=== PATIENT | male | born 1945 | race Caucasian/White ===

== ENCOUNTER 2017-03-20 09:42 | Outpatient (CLI) | payer OTHER ==
--- NOTE | 2017-03-20 12:07 | DIAGNOSTIC IMAGING REPORT ---
PROCEDURE: US ABDOMEN VASCULAR-AAA INDICATION: Hypertension, history of smoking TECHNIQUE: Christy scale, color Doppler (and spectral Doppler if indicated) sonographic images were obtained of the abdominal aorta and proximal common iliac arteries. COMPARISON: None. FINDINGS: Aortic course and contour: Fairly extensive intraluminal irregularities secondary to mixed calcified and noncalcified atherosclerotic plaque. Greatest AP diameter of the proximal aorta: 2.6 cm, mid aorta: 2.2 cm, distal aorta: 1.8 cm. Aortic flow: 83 cm/sec Right common iliac artery diameter, contour, and flow: The origin appear stenotic and irregular secondary to heavy atherosclerosis. The caliber is 12 mm. Flow is turbulent at the origin and demonstrates elevated velocity of 322 cm/sec. Left common iliac artery and diameter, contour, and flow: Left common iliac origin not well seen. Caliber is normal 1.3 cm. Turbulent, elevated velocity at 264 cm/sec. IMPRESSION: 1. No evidence of abdominal aortic aneurysm. 2. Fairly extensive abdominal aortic atherosclerosis. 3. Potentially hemodynamically significant stenoses at the right and left common iliac artery origins, right worse than left resulting in significant velocity elevations in the proximal common iliac arteries distal to the origins. 3. Consider clinical correlation with any lower extremity claudication, and bilateral lower extremity Doppler evaluation with ABIs if indicated.
== END 2017-03-20 23:00 ==
LOC: US SRH 09:42
DX: Z87.891 Personal history of nicotine dependence (principal); I10 Essential (primary) hypertension; Z13.6 Encounter for screening for cardiovascular disorders; I70.0 Atherosclerosis of aorta

== ENCOUNTER 2017-05-06 13:22 | Outpatient (CLI) | payer OTHER ==
--- NOTE | 2017-05-06 16:33 | DIAGNOSTIC IMAGING REPORT ---
PROCEDURE: US BILATERAL CAROTID DOPPLER INDICATION: Syncope, history of bilateral carotid endarterectomy and the left ICA stent. History of smoking. TECHNIQUE: Color Doppler duplex imaging of the carotid and vertebral vessels. COMPARISON: 04/12/2014 FINDINGS: Right carotid system: Noncalcified atherosclerotic plaque in the proximal common carotid artery causing mild luminal stenosis. Irregular calcific plaque in the distal common carotid artery extending to the carotid bulb where there is only mild intimal medial thickening. Minor concentric wall thickening of external and internal carotid artery origins. The wave forms are normal. Left carotid system: Moderate common carotid intimal medial thickening proximally, and distally and there is moderate calcific plaque causing mild luminal stenosis. A short foci of eccentric plaque are seen in the distal common segment. Moderate intimal medial thickening of the carotid bulb extends into the internal carotid artery, and there is subjective mild luminal narrowing at the external carotid artery origin. Midportion of the left internal carotid artery demonstrates subjective luminal narrowing but there is laminar flow. Vertebral System: There is retrograde flow in the right vertebral artery and increased velocity antegrade flow in the left. Right common carotid artery peak systolic velocity 120 cm/second. Right internal carotid artery peak systolic velocity 70 cm/second. Right external carotid artery peak systolic velocity 99 cm/second. Right [id number] carotid artery ratio 0.58 Right vertebral artery peak systolic velocity 38 cm/second. Retrograde. Left common carotid artery peak systolic velocity 123 cm/second. Left internal carotid artery peak systolic velocity 64 cm/second. Left external carotid artery peak systolic velocity 164 cm/second. Left [id number]-[id number]-[id number] carotid artery ratio 0.52 Left vertebral artery peak systolic velocity 84 cm/second. IMPRESSION: 1. Common carotid artery intimal thickening and mixed calcified and noncalcified plaque bilaterally with mild stenoses, estimated to be about 15% bilaterally. No significant progression. 2. Retrograde right vertebral artery flow at rest. New since prior study. 3. Mild left external carotid stenosis. Velocity criteria are extrapolated from diameter data as defined by the [employer] of [employer] in Ultrasound Consensus Conference, Radiology 2003; 229; 340-346.
== END 2017-05-06 23:00 ==
LOC: US SRH 13:22
DX: I65.22 Occlusion and stenosis of left carotid artery (principal)